=== PATIENT | female | born 1945 | race Two or more races ===

== ENCOUNTER 2017-10-09 14:42 | Emergency (ER) | payer MEDICARE, MEDICAID ==
[~2017-10-09] VITALS: Ht 160 cm; Wt 59.0 kg
[2017-10-09 15:22] LABS: BASOPHILS % (AUTO) 0.3 % (0.0-2.0); EOSINOPHILS % (AUTO) 0.1 % (0.0-6.0); HEMATOCRIT 36 % (33-45); HEMOGLOBIN 12.2 g/dL (11.5-14.8); LYMPHOCYTES # (AUTO) 1.1 /CMM (0.8-4.8); MEAN CORPUSCULAR HEMOGLOBIN 29 PG (26.0-33.0); MEAN CORPUSCULAR HGB CONC 34 g/dl (31.0-36.0); MEAN CORPUSCULAR VOLUME 84 fL (82-100); MONOCYTES # (AUTO) 0.3 /CMM (0.1-1.30); MONOCYTES % (AUTO) 5.6 % (2.0-12.0); NEUTROPHILS # (AUTO) 4.6 /CMM (1.8-8.9); PLATELET COUNT (AUTO) 337 /CMM (150-450); RED BLOOD CELL COUNT(AUTO) 4.28 MIL/uL (4.0-5.2)
[2017-10-09] MEDS ORDERED: LIDOCAINE 1% INJ 50 ML MDV IJ ONE (15:29)
[2017-10-09] MEDS ORDERED: ACETAMINOPHEN ES 500 MG TABLET ONE (15:29)
[2017-10-09] MEDS ORDERED: ACETAMINOPHEN ES 500 MG TABLET PO ONE (15:30)
[2017-10-09] MEDS ORDERED: LIDOCAINE HCL/PF 1% 30 ML VIAL TP ONE (15:30)
[2017-10-09 15:32] LABS: CALCIUM, SERUM 9.3 mg/dL (8.5-10.1); CARBON DIOXIDE 26 mmol/L (21-32); CHLORIDE 99 mmol/L (98-107); GLUCOSE 139 mg/dL (74-106); POTASSIUM 3.6 mmol/L (3.5-5.1); SODIUM SERUM 133 mmol/L (136-145); UREA NITROGEN, BLOOD 17 mg/dL (7-18)
[2017-10-09 15:36] LABS: INR 0.9 (0.87-1.13); PROTHROMBIN TIME 9.4 SECS (9.5-12.7)
[2017-10-09 15:38] LABS: ALANINE AMINOTRANSFERASE 20 U/L (12-78); ALBUMIN 3.6 g/dL (3.4-5.0); ALKALINE PHOSPHATASE 99 U/L (46-116); ASPARTATE AMINOTRANSFERASE 17 U/L (15-37); BILIRUBIN,DIRECT 0.1 mg/dL (0.0-0.2); BILIRUBIN,TOTAL 0.4 mg/dL (0.2-1.0); TOTAL PROTEIN, SERUM 7.5 g/dL (6.4-8.2)
[2017-10-09 15:39] LABS: TROPONIN I < 0.017 ng/mL (0.00-0.056)
--- NOTE | 2017-10-09 15:41 | NUR ---
PT BIB [facility] S/P SYNCOPE WITH C/O MILD HEADACHE. NO NEURO DEFICITS NOTED. RESP EVEN UNLABORED. SKIN WARM, DRY. NOTED WITH LAC TO L FOREHEAD, WITH PRESSURE DRESSING INTACT FROM EMS. IN ER BED 09 ON MONITOR.
--- NOTE | 2017-10-09 17:20 | NUR ---
IV removed. Catheter intact and site benign. Pressure and 4x4 applied to site. No bleeding noted. DRESSING APPLIED TO SUTURED WOUND. AMBULATORY WITH STEADY GAIT. Patient discharged to home in stable condition WITH SON. Written and verbal after care instructions given. Patient verbalizes understanding of instruction.
[2017-10-09 17:27] VITALS: BP 111/62
== END 2017-10-09 17:31 | disposition home or self-care (01) ==
LOC: ER 14:45
DX: S01.112A Laceration without foreign body of left eyelid and periocular area, initial encounter (principal); S01.01XA Laceration without foreign body of scalp, initial encounter; R55 Syncope and collapse; I10 Essential (primary) hypertension; E11.9 Type 2 diabetes mellitus without complications; W18.39XA Other fall on same level, initial encounter; Y93.89 Activity, other specified; Y92.89 Other specified places as the place of occurrence of the external cause; Y99.8 Other external cause status
CPT/HCPCS: 12002; 36415; 70450; 71045; 80048; 80076; 84484; 85025; 85730; 93005; 99285; A6402; A6403 ×2; J3490 ×2; A4606; J7030; Z7610